=== PATIENT | female | born 1965 | race African-American/Black ===

== ENCOUNTER → 2017-02-10 | Outpatient (CLI) | payer OTHER ==
--- NOTE | ~2017-02-10 | MY29 ---
[facility] A Service of [facility] RADIOLOGY TEXT RESULTS PATIENT: VAL ESPINOSA LOCATION: [facility] #: [id number] : 67 UNIT #: [id number] AGE: [address]: LAMBERT DURAN MD SEX: F ORDER DR: [id number] [facility] [address] [place], [place] [address] [id number] O MR#: [id number] #: [id number] NAME: VAL ESPINOSA : 1965 SEX: F STUDY DATE/TIME: 02/10/2017 11:43 UNIT: [facility] ROOM: STUDY DESCRIPTION: MY INA SCREENING W/ CAD BILAT Attending Physician: Lambert Duran M.D. Referring Physician: Lambert Duran M.D. Ordering Physician: Lambert Duran M.D. Primary Care Physician: Lambert Duran M.D. MEDICAL IMAGING REPORT This report is preliminary unless electronic signature is present EXAM Digital screening mammogram, 02/10/2017; [facility]. HISTORY 52-year-old woman, no risk elevation. Annual screen. COMPARISON Mammograms date to 02/26/2010, with most recent 02/07/2016. TECHNIQUE Digital imaging of each breast was completed utilizing screening protocol. Review includes FDA-approved CAD device. FINDINGS Breast parenchyma remains moderately dense with fibroglandular opacities bilaterally. Mild parenchymal dominance is stable in the inner hemisphere of the left breast. There is an occasional benign calcification noted. I see no suspicious mass and no interval occurring suspicious microcalcifications or architectural deformity. IMPRESSION Negative mammogram. Annual screening recommended. BIRADS 1. Patients over the age of 40 are entered into a reminder system with target due date for the next mammogram. A result letter will also be sent to the patient. BIRADS: 1 Negative. Dictated by... Jeancarlos Ferguson M.D. [facility] A Service of [facility] RADIOLOGY TEXT RESULTS PATIENT: VAL ESP[facility]OSA [id number] : 67 UNIT #: [id number] AGE: [address]: LAMBERT DURAN MD SEX: F ORDER DR: THIS IS AN ELECTRONICALLY VERIFIED REPORT Jeancarlos Ferguson M.D. at 02/11/2017 8:06 AM Javon TD: 02/10/2017 22:30 JOB #: [id number] MEDICAL IMAGING REPORT Page 1 of 1 COPY
== END | disposition home or self-care (01) ==
LOC: CWCC 02-08 10:45
DX: Z12.31 Encounter for screening mammogram for malignant neoplasm of breast (principal)
CPT/HCPCS: G0202